=== PATIENT | female | born 1950 | race Caucasian/White ===

== ENCOUNTER 2017-10-18 08:50 | Emergency (ER) | payer BC, OTHER ==
[2017-10-18 09:10] VITALS: BP 140/75
--- NOTE | 2017-10-18 09:16 | UC ---
Kelly Clark Gabriel, scribed for Demetris Castaneda MD on 10/18/17 at 0910 . HPI Febrile Illness - HPI Summary HPI Summary: This patient is a 67 year old F presenting to [facility] with a chief complaint of febrile illness that began a week ago. The patient rates the pain 0/10 in severity. Symptoms alleviated by antipyretics and guaifenesin. Patient reports eye discharge, nasal congestion, and productive cough. Patient denies sore throat and sinus pain. Pt states she believed she contracted it in [place] and just returned home from there yesterday. - History of Current Complaint Time Seen by Provider: 10/18/17 08:57 Hx Obtained From: Patient Onset/Duration: Started Weeks Ago - 1, Still Present Timing: Constant Initial Severity: Moderate Current Severity: Moderate Associated Signs and Symptoms: Negative - sore throat, sinus pain,, Other: - eye discharge, nasal congestion, productive cough, - Allergy/Home Medications Allergies/Adverse Reactions: Allergies Allergy/AdvReac Type Severity Reaction Status Date / Time chloroquine Allergy Fever Verified 10/18/17 09:00 Home Medications: Home Medications Rosuvastatin Calcium 10 mg PO DAILY 10/18/17 [History Confirmed 10/18/17] guaiFENesin ER TAB [Mucinex*] 600 mg PO BID 10/18/17 [History Confirmed 10/18/17 ] PMH/Surg Hx/FS Hx/Imm Hx Cardiovascular History: Hypertension, Other Other Cardiovascular History: HLD Other History Of: Negative For: HIV - Surgical History Surgical History: Yes Surgery Procedure, Year, and Place: 2 C SECTIONS. HERNIA - Family History Known Family History: Positive: Hypertension Negative: Renal Disease, Respiratory Disease, Seizure Disorder - Social History Lives: With Family Alcohol Use: Rare Substance Use Type: None Smoking Status (MU): Never Smoked Tobacco Review of Systems Constitutional: Fever ENT: Nasal Discharge, Sinus Congestion, Other - eye discharge All Other Systems Reviewed And Are Negative: Yes Physical Exam - Summary Physical Exam Summary: General: well-appearing, no pain distress Skin: warm, color reflects adequate perfusion, dry Head: normal Eyes: EOMI, MARIOLA ENT: rhinorrhea, posterior pharynx is erythematous Neck: supple, nontender Respiratory: CTA, breath sounds present Cardiovascular: RRR Abdomen: soft, nontender Bowel: present Musculoskeletal: normal, strength/ROM intact Neurological: sensory/motor intact, A&O x3 Psychological: affect/mood appropriate Triage Information Reviewed: Yes Vital Signs: Initial Vital Signs Temp 100.1 F 10/18/17 08:57 Pulse 90 10/18/17 08:57 Resp 16 10/18/17 08:57 BP 140/75 10/18/17 08:57 Pulse Ox 98 10/18/17 08:57 Vital Signs Reviewed: Yes Course/Dx - Course Course Of Treatment: DISCUSSED VIRAL VERSES BACTERIAL INFECTION AND INDICATIONS FOR ANTIBIOTICS. THE PATIENT PREFERS TO BE ON ANTIBIOTICS AT THIS TIME. F/U PMD; GET RECHECKED SOONER IF WORSE. Assessment/Plan: BP noted and advised to follow up with PCP. - Diagnoses Clinic Provider Diagnoses: SINUSITIS. HTN Discharge - Sign-Out/Discharge Documenting (check all that apply): Discharge/Admit/Transfer - Discharge Plan Condition: Stable Disposition: HOME Prescriptions: Amoxicillin/Clavulanate TAB* [Augmentin TAB 875*] 875 mg PO BID #20 tab Patient Education Materials: Sinusitis (ED) Referrals: Lindsay Hanson MD [Primary Care Provider] - Additional Instructions: FOLLOW UP WITH YOUR DOCTOR IF NOT COMPLETELY IMPROVED. GET RECHECKED FOR ANY WORSENING OF YOUR CONDITION OR QUESTIONS OR CONCERNS. - Billing Disposition and Condition Condition: STABLE Disposition: HOME The documentation as recorded by the Kelly kauffman Gabriel accurately reflects the service I personally performed and the decisions made by me, Demetris Castaneda MD.
== END 2017-10-18 09:15 | disposition home or self-care (01) ==
LOC: UCEAST 08:50
DX: J32.9 Chronic sinusitis, unspecified (principal); I10 Essential (primary) hypertension; E78.5 Hyperlipidemia, unspecified; Z88.8 Allergy status to other drugs, medicaments and biological substances
CPT/HCPCS: 99212; G0463